=== PATIENT | female | born 1955 | race Caucasian/White ===

== ENCOUNTER 2025-07-03 09:46 | Emergency (ER) | payer MEDICARE, SELFPAY ==
[2025-07-03 10:27] VITALS: BP 146/65; PULSE 85; RESP 16; TEMP 35.9; O2SAT 98
--- NOTE | 2025-07-03 10:32 | ED_ITS ---
HPI - URI/Sore Throat General Chief Complaint: Upper Respiratory Infection Stated Complaint: Cough Time Seen by Provider: 07/03/25 10:32 Source: patient and RN notes reviewed Mode of arrival: ambulatory Limitations: no limitations History of Present Illness HPI Narrative: 69-year-old female presents to the [facility] with complaints of a cough for over 2 weeks. Has been taking cough syrup, nasal spray. Had been prescribed prednisone by her primary for just in case. States that she finished taking the prednisone and had no relief. Patient denies any chest pain, shortness of breath. Reports that the cough is been pretty constant. Onset (ago): week(s) (Over 2 weeks) Related Data Home Medications ?Medication ?Instructions ?Recorded ?Confirmed ?Last Taken ?Type apixaban 5 mg tablet (Eliquis) mg 07/03/25 Unknown Hi story atorvastatin 20 mg tablet mg 07/03/25 Unknown History furosemide 40 mg tablet mg 07/03/25 Unknown History glipizide 5 mg tablet mg 07/03/25 Unknown History metoprolol tartrate 25 mg tablet mg 07/03/25 Unknown History pantoprazole 40 mg tablet,delayed mg PO 07/03/25 Unkn own History release potassium chloride 20 mEq meq PO 07/03/25 Unknown His tory tablet,extended release(part/cryst) tirzepatide 7.5 mg/0.5 mL mg subcut 07/03/25 Unknown History subcutaneous pen injector (Mounjaro) valsartan 320 tablet 07/03/25 Unknown His tory mg-hydrochlorothiazide 25 mg tablet Allergies Allergy/AdvReac Type Severity Reaction Status Date / Time No Known Allergies Allergy Mild Verified 07/03/25 10:38 Review of Systems Review of Systems: All systems reviewed & are unremarkable except as noted in HPI and below Constitutional: Constitutional: Reports no additional constitutional complaints ENT: Reports system reviewed and no additional complaints, except as documented Cardiovascular: Cardiovascular: Reports no additional cardiovascular complaints, Denies chest pain and Denies dyspnea Respiratory: Respiratory: Reports as per HPI, Denies chest congestion, Reports cough and Denies dyspnea Musculoskeletal: Musculoskeletal: Reports no additional musculoskeletal complaints Integumentary/Breasts: Skin/Breast: Reports system reviewed and no additional complaints, except as docu [facility] Comments At the time of my signature, I reviewed and agree with the nursing past medical, surgical, social, and family history. There is no relevant family history pe rtinent to the patient complaint. Exam Const: General: cooperative, healthy appearing, comfortable, no acute distress, well developed, alert and well nourished Nutritional Appearance: well nourished and obese Orientation/consciousness: patient oriented x3 Limitations: no limitations HENMT: Head: normal to inspection Ears: hearing grossly normal bilaterally, external ears normal, TM's normal bilaterally, EAC's normal, mastoids normal and no periauricular adenopathy Face and sinus: face symmetric and sinus tenderness Mouth: Yes Normal oral and palatal mucosa present, Yes lip normal, Yes tongue normal and Yes moist mucous membranes Throat: posterior oropharynx normal, uvula midline, postnasal drainage and no uvular edema Eyes: General: appearance normal, both eyes and all related structures Alignment and Position: alignment normal Neck: Neck: normal visual inspection, full ROM, no lymphadenopathy and no meni ngeal signs Chest: Chest palpation & inspection: normal inspection of the chest Resp: Effort & Inspection: normal respiratory effort and able to speak in complete sentences Auscultation: clear to auscultation bilaterally, no crackles, no rales, no rhonchi and no wheezes Cardio: Rate: regular rate Skin: General skin exam: normal color and no rashes or lesions noted Neuro: General: patient oriented x3, gait normal, moves all extremities and no meningeal signs Cognition (Neuro): normal cognition Speech: normal speech Gait exam (Neuro): Normal gait present Extrem: General: normal to inspection, full ROM, capillary refill normal and normal gait Psych: Appearance: grossly normal and well kempt Mental Status: mental status grossly normal Speech and movement: Normal speech and movement present and Clear speech present Affect: normal affect Attitude: cooperative Course Course Level of Care: Express Care Visit Vital Signs Vital signs: Vital Signs Temperature 96.7 F L 07/03/25 10:27 Pulse Rate 85 07/03/25 10:27 Respiratory Rate 16 07/03/25 10:27 Blood Pressure 146/65 H 07/03/25 10:27 Pulse Oximetry 98 07/03/25 10:27 Temperature 96.7 F L 07/03/25 10:27 Pulse Rate 85 07/03/25 10:27 Respiratory Rate 16 07/03/25 10:27 Blood Pressure 146/65 H 09/02/25 10:27 Pulse Oximetry 98 07/03/25 10:27 Oxygen Delivery Room Air 07/03/25 10:30 Reviewed MDM - URI/Sore Throat MDM Narrative Medical decision making narrative: Patient with a 2 week history of cough, congestion. Patient with sinus tenderness. Patient reports finishing prednisone. Patient with significant medical history, denies chest pain or shortness of breath. Just reports a cough for over 2 weeks. Will cover with antibiotic due to patient's comorbidities as well as length of symptoms. Patient appropriate for outpatient treatment with close follow-up Discharge instructions reviewed with patient, as well as provided in writing per nursing staff. The instructions also include specific and strict return/GO TO THE ER as well as f/u information. All questions have been answered, and the patient deny any further questions with discharge and discharge plan. Some parts of this dictation were generated by voice recognition software and may contain typographical and/or grammatical inaccuracies. Differential Diagnosis Differential diagnosis: Likely upper respiratory infection, otitis media, sinusitis, viral infection and bronchitis Critical Care Time Critical Care Time Critical Care Time: No Discharge Plan Discharge Clinical Impression: Bronchitis Sinusitis Qualifiers: Sinusitis location: pansinusitis Chronicity: acute Recurrence: not specified as recurrent Qualified Code(s): J01.40 - Acute pansinusitis, unspecified Patient Disposition: Home Condition: Stable Instructions: Sinusitis (ED), Acute Bronchitis (ED) Additional Instructions: It is very important to treat your symptoms. Drink plenty of water, Gatorade, Pedialyte, ice pops or Jell-O. -Antihistamine medication such as Zyrtec/Claritin/Winter during the day can help improve symptoms. -doing daily nasal irrigations can help relieve pressure your sinuses. Things like a Neti pot -Use Flonase twice a day for 5 days then daily to help reduce the inflammation and dry up your sinuses. -You can also use Coricidin HBP or Mucinex. Be sure to drink plenty of water with this medication at least 8 ounces with every dose and it is important to drink 8 to 10 glasses of water per day. Water is a natural decongestant -Eat and drink things that are easy to swallow, like tea or soup, or popsicles. -Oral rinses such as: Salt water gargles and/or may use topical anesthetic (eg. Chloraseptic spray) or lozenges to relieve dryness or throat pain). -Frequent hand washing or hand bods developer is one of the best ways to prevent spread of infection. -Using a vaporizer or humidifier at night will also help thin secretions and help with coughing up phlegm. -Follow up with primary care provider in 7-10 days if condition is not improving - For new or worsening symptoms go directly to the nearest ER Patient Language: Citizen Of [place] Prescriptions: New doxycycline monohydrate 100 mg tablet 100 mg PO BID Qty: 14 0RF No Action furosemide 40 mg tablet atorvastatin 20 mg tablet potassium chloride 20 mEq tablet,ER particles/crystals PO pantoprazole 40 mg tablet,delayed release (DR/EC) PO glipizide 5 mg tablet metoprolol tartrate 25 mg tablet valsartan-hydrochlorothiazide 320-25 mg tablet Eliquis 5 mg tablet Mounjaro 7.5 mg/0.5 mL pen injector SUBCUT Follow-up/Referrals: PHYSICIAN,[facility] [Primary Care Provider, Internal Medicine] Time of Disposition: 10:48
== END 2025-07-03 10:51 | disposition home or self-care (01) ==
PROVIDERS: Emergency Provider Nurse Practitioner
DX: J40 Bronchitis, not specified as acute or chronic (principal); J01.40 Acute pansinusitis, unspecified; I48.0 Paroxysmal atrial fibrillation; I10 Essential (primary) hypertension; E11.9 Type 2 diabetes mellitus without complications; Z79.84 Long term (current) use of oral hypoglycemic drugs; Z79.85 Long-term (current) use of injectable non-insulin antidiabetic drugs; Z79.01 Long term (current) use of anticoagulants
CPT/HCPCS: 99203; G0463